=== PATIENT | female | born 1945 | race African-American/Black ===

== ENCOUNTER 2019-03-09 15:54 | Emergency (ER) | payer OTHER ==
[~2019-03-09] VITALS: Ht 170.2 cm; Wt 67.1 kg
[~2019-03-09 15:54] MED LIST: IBUPROFEN600 MG PO; NORCO 5-325 TA1 EACH PO; ROBAXIN-750750 MG PO
[2019-03-09 16:09] VITALS: BP 135/90
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
[2019-03-09] MEDS ORDERED: AUGMENTIN 875-1 EAC1 ORAL (16:16)
[2019-03-09] MEDS ORDERED: IBUPROFEN600 MG ORAL (16:16)
[2019-03-09] MEDS: Augmentin 875mg Tab ORAL ONE (16:20)
[2019-03-09] MEDS: Tetanus/Diptheria/Pertussis IM ONE (16:22)
--- NOTE | 2019-03-09 16:40 | Diagnostic Imaging Report ---
Indication: Right wrist pain COMPARISON: None Findings: 3 views of the right wrist were obtained. There is no acute fracture identified. No malalignment seen. There is narrowing and osteophyte formation involving the radiocarpal joint and several of the intercarpal joints. Chondrocalcinosis of the triangular fibrocartilage complex noted. Bones are osteopenic. There is soft tissue swelling about the wrist. IMPRESSION: Soft tissue swelling presumably on the basis of recent injury. No acute fracture identified Arthrosis and chondrocalcinosis as described above
--- NOTE | 2019-03-09 16:45 | NUR ---
ED Nurse Note: CLEANSED WOUND WITH NS THEN APPLIED BACTRACIN ON RIGHT WRIST, COVERED WITH NON STICK DRESSING AND WRAPPED WITH KERLIX.
[2019-03-09] MEDS ORDERED: Bacitracin Oint UD TOPIC ONE (16:46)
[2019-03-09] MEDS: Bacitracin Oint UD TOPIC ONE (16:49)
[2019-03-09] MEDS ORDERED: MUPIROCIN15 GM TOPIC (16:50)
[2019-03-09 16:52] VITALS: BP 130/78
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
== END 2019-03-09 17:00 | disposition home or self-care (01) ==
LOC: EMR 16:56
DX: S61.551A Open bite of right wrist, initial encounter (principal); L03.113 Cellulitis of right upper limb; W50.3XXA Accidental bite by another person, initial encounter; Y92.9 Unspecified place or not applicable; Z23 Encounter for immunization; Z88.5 Allergy status to narcotic agent
CPT/HCPCS: 90471; 90715; 99283